=== PATIENT | female | born 1970 | race Two or more races ===

== ENCOUNTER 2024-01-17 19:49 | Emergency (ER) | payer OTHER ==
[~2024-01-17] VITALS: Ht 160 cm; Wt 71.2 kg
[2024-01-17] MEDS ORDERED: SYNTHROID112 MCG PO (20:23)
[2024-01-17] MEDS ORDERED: ORPHENADRINE CITRATE 30 MG/ML AMPUL IM STA (21:23)
[2024-01-17] MEDS ORDERED: KETOROLAC TROMETHAMINE 30 MG VIAL IM STA (21:23)
[2024-01-17] MEDS ORDERED: ORPHENADRINE CITRATE 30 MG/ML AMPUL ONE (21:30)
[2024-01-17] MEDS ORDERED: KETOROLAC TROMETHAMINE 60 MG VIAL IM ONE (21:31)
[2024-01-17] MEDS ORDERED: DICLOFENAC POTA50 MG PO (22:58)
[2024-01-17] MEDS ORDERED: ZANAFLEX4 MG PO (22:58)
== END 2024-01-17 23:02 | disposition home or self-care (01) ==
LOC: ER 19:50
DX: M54.2 Cervicalgia (principal); M62.830 Muscle spasm of back; V43.52XA Car driver injured in collision with other type car in traffic accident, initial encounter; Y93.89 Activity, other specified; Y92.413 State road as the place of occurrence of the external cause